=== PATIENT | female | born 1950 | race Hispanic/Latino ===

== ENCOUNTER 2018-12-06 10:08 | Emergency (ER) | payer MEDICARE ==
[2018-12-06] MEDS ORDERED: ONDANSETRON ODT 4 MG TAB ONE (11:00)
[2018-12-06] MEDS ORDERED: MORPHINE SULFATE 4 MG/1ML SYG ONE (11:00)
== END 2018-12-06 11:27 | disposition home or self-care (01) ==
LOC: EDH 10:08
DX: S80.02XA Contusion of left knee, initial encounter (principal); S80.01XA Contusion of right knee, initial encounter; M17.0 Bilateral primary osteoarthritis of knee; W18.39XA Other fall on same level, initial encounter; Y93.01 Activity, walking, marching and hiking; Y92.512 Supermarket, store or market as the place of occurrence of the external cause; Y99.8 Other external cause status
CPT/HCPCS: 73562 ×2; 96372; 99283; J2270

== ENCOUNTER 2022-03-08 14:01 | Inpatient (IN) | payer MEDICARE ==
[~2022-03-08] VITALS: Ht 157.5 cm; Wt 78.1 kg
[2022-03-08] MEDS ORDERED: 0.9%NACL 1000ML 2,000 ML IV ONE (14:23)
[2022-03-08 14:24] LABS: MEAN CORPUSCULAR HEMOGLOBIN 30.4 pg (27.0-33.0); MEAN CORPUSCULAR HGB CONC 34.2 g/dL (32.0-36.0); MEAN CORPUSCULAR VOLUME 88.9 fL (79-99); NUCLEATED RED BLOOD CELLS 0.1 % (0.0-0.19); PLATELET COUNT (AUTO) 283 K/uL (130-400); RED BLOOD CELL COUNT(AUTO) 2.17 MIL/uL (4.00-5.50); RED CELL DISTRIBUTION WIDTH 14.1 % (11.0-15.5); WHITE BLOOD COUNT (AUTO) 16.5 K/uL (4.8-10.8)
[2022-03-08] MEDS ORDERED: 0.9%NACL 1000ML 1,000 ML IV SCH ×2 (14:30→16:30)
[2022-03-08] MEDS ORDERED: 0.9%NACL 1000ML 2,000 ML IV SCH (14:30)
[2022-03-08 14:38] LABS: HEMATOCRIT 19.3 % (36-48)
[2022-03-08 14:39] LABS: ABG OXYGEN SATURATION 15.1 % (95.0-99.0); BASE EXCESS,VENOUS BLOOD GAS 3.2 (-2.0-3.0); HCO3,VENOUS BLOOD GAS 26.6 (21.0-28.0); PCO2,VENOUS BLOOD GAS 35 (32-45); PH,VENOUS BLOOD GAS 7.504 (7.350-7.450)
[2022-03-08 14:50] LABS: ALBUMIN 3.1 g/dL (3.5-5.0); BILIRUBIN,TOTAL 0.4 mg/dL (0.2-1.0); CREATININE 2.1 mg/dL (0.5-1.5); POTASSIUM 3.9 mmol/L (3.5-5.1); TOTAL PROTEIN, SERUM 6.5 g/dL (6.0-8.3)
[2022-03-08 15:00] LABS: BAND NEUTROPHILS % (MANUAL) 1 % (0-2); LYMPHOCYTES % (MANUAL) 21 % (22-44); MONOCYTES % (MANUAL) 2 % (2-9); SEGMENTED NEUTROPHILS % 76 % (40-70)
[2022-03-08 15:01] LABS: MAN.DIFF COMMENT-IMPRESSION MANUAL DIFFERENTIAL
[2022-03-08 15:05] LABS: PLATELET MORPHOLOGY COMMENT LARGE PLTS PRESENT
[2022-03-08 15:14] LABS: MAGNESIUM 1.7 mg/dL (1.80-2.40)
[2022-03-08] MEDS ORDERED: INSULIN HUMULIN R 100 UNIT/ML 3ML SQ ONE (15:30)
[2022-03-08] MEDS ORDERED: INSULIN GLARGINE 100 UNITS/ML 10 ML VIAL SQ STA (16:30)
[2022-03-08] MEDS ORDERED: ONDANSETRON 4MG INJ IVP PRN (16:30)
[2022-03-08] MEDS: INSULIN HUMULIN R 100 UNIT/ML 3ML SQ SCH ×3 (17:00→23:10)
[2022-03-08 17:01] LABS: APPEARANCE,URINE Clear (CLEAR); BILIRUBIN,URINE Negative (NEGATIVE); COLOR,URINE Yellow (YELLOW); GLUCOSE, URINE (UA) >=1000 mg/dL (NEGATIVE); KETONES,URINE Trace mg/dL (NEGATIVE); LEUKOCYTE ESTERASE ,URINE Negative (NEGATIVE); NITRATE,URINE Negative (NEGATIVE); OCCULT BLOOD,URINE Large (NEGATIVE); PH,URINE 7.5 (5.0-8.0); PROTEIN,URINE Negative (NEGATIVE)
[2022-03-08 17:08] LABS: BACTERIA,URINE Few /HPF (None Seen); RBC,URINE 0-1 /HPF (0-1); SQUAMOUS EPITHELIAL CELL,UR Rare /HPF (0-2); WBC,URINE 0-1 /HPF (0-1)
[2022-03-08 17:13] LABS: ALBUMIN 2.5 g/dL (3.5-5.0); BILIRUBIN,TOTAL 0.3 mg/dL (0.2-1.0); CREATININE 1.6 mg/dL (0.5-1.5); POTASSIUM 3.6 mmol/L (3.5-5.1); TOTAL PROTEIN, SERUM 5.4 g/dL (6.0-8.3)
[2022-03-08 17:14] LABS: % IRON SATURATION 13.8 % (22-44)
[2022-03-08] MEDS ORDERED: PEG 3350/NA SULF,BICARB,CL/KCL 4000 ML SOLN PO ONE (18:00)
[2022-03-08] MEDS: PANTOPRAZOLE 40 MG/VIAL IVP SCH (21:25)
[2022-03-08] MEDS ORDERED: GLUCAGON 1MG KIT 1 MG ML IM PRN (23:30)
[2022-03-08] MEDS ORDERED: DEXTROSE 50%-WATER 50 ML DISP.SYRIN IV PRN (23:30)
[2022-03-09] VITALS (15 sets, daily range): BP systolic 96–144; BP diastolic 39–80
[2022-03-09 02:02] LABS: HEMATOCRIT 25.1 % (36-48)
[2022-03-09] MEDS: INSULIN HUMULIN R 100 UNIT/ML 3ML SQ SCH ×3 (06:00→17:39)
[2022-03-09 06:35] LABS: BASOPHILS % (AUTO) 0.3 % (0.0-5.0); EOSINOPHILS % (AUTO) 0.5 % (0.0-8.0); LYMPHOCYTES % (AUTO) 36.4 % (21.0-51.0); MEAN CORPUSCULAR HEMOGLOBIN 30.4 pg (27.0-33.0); MEAN CORPUSCULAR HGB CONC 34.6 g/dL (32.0-36.0); MEAN CORPUSCULAR VOLUME 87.8 fL (79-99); MONOCYTES % (AUTO) 6.1 % (3.0-13.0); NEUTROPHILS % (AUTO) 55.3 % (40.0-77.0); NUCLEATED RED BLOOD CELLS 0.2 % (0.0-0.19); PLATELET COUNT (AUTO) 206 K/uL (130-400); RED BLOOD CELL COUNT(AUTO) 2.96 MIL/uL (4.00-5.50); WHITE BLOOD COUNT (AUTO) 13.8 K/uL (4.8-10.8)
[2022-03-09 07:08] LABS: HEMOGLOBIN A1C 9.3 % (4.0-6.0)
[2022-03-09] MEDS ORDERED: MAGNESIUM 2GM PREMIX 50ML 50 ML IV PRN (08:00)
[2022-03-09] MEDS ORDERED: MAGNESIUM 2GM PREMIX 50ML 50 ML IV ONE (08:12)
[2022-03-09] MEDS: PANTOPRAZOLE 40 MG/VIAL IVP SCH ×2 (08:23→20:53)
[2022-03-09 10:27] LABS: ALBUMIN 2.8 g/dL (3.5-5.0); BILIRUBIN,TOTAL 0.5 mg/dL (0.2-1.0); CREATININE 1.4 mg/dL (0.5-1.5); POTASSIUM 3.1 mmol/L (3.5-5.1)
[2022-03-09] MEDS ORDERED: LIDOCAINE HCL-MPF 1% 2ML VIAL IV PRN ×2 (11:00→14:30)
[2022-03-09] MEDS ORDERED: POTASSIUM CHLORIDE 20MEQ/100ML 100 ML IV PRN ×2 (11:00→14:30)
[2022-03-09] MEDS ORDERED: PROPOFOL 10 MG/ML 20ML VIAL IV ONE (12:11)
[2022-03-09] MEDS ORDERED: LIDOCAINE PF 100MG/5ML (2%) SYRINGE 5ML ONE (12:11)
[2022-03-09] MEDS ORDERED: FENTANYL CITRATE PF 50 MCG/1 ML 2ML VIAL ONE (12:11)
[2022-03-09] MEDS ORDERED: 0.9%NACL 1000ML 1,000 ML IV ONE (12:38)
[2022-03-09] MEDS: POTASSIUM CHLORIDE 10% ELIXIR 20 MEQ/15 ML UDCUP PO PRN ×2 (14:28→16:53)
[2022-03-09 18:03] LABS: MAGNESIUM 2.1 mg/dL (1.80-2.40); POTASSIUM 3.7 mmol/L (3.5-5.1)
[2022-03-10] MEDS: INSULIN HUMULIN R 100 UNIT/ML 3ML SQ SCH ×4 (01:02→16:19)
[2022-03-10 03:36] VITALS: BP 95/48
[2022-03-10 04:26] LABS: BASOPHILS % (AUTO) 0.2 % (0.0-5.0); EOSINOPHILS % (AUTO) 1.7 % (0.0-8.0); HEMATOCRIT 22.8 % (36-48); LYMPHOCYTES % (AUTO) 43.1 % (21.0-51.0); MEAN CORPUSCULAR HEMOGLOBIN 29.1 pg (27.0-33.0); MEAN CORPUSCULAR HGB CONC 32.5 g/dL (32.0-36.0); MEAN CORPUSCULAR VOLUME 89.8 fL (79-99); MONOCYTES % (AUTO) 7.3 % (3.0-13.0); NEUTROPHILS % (AUTO) 46.8 % (40.0-77.0); NUCLEATED RED BLOOD CELLS 0.2 % (0.0-0.19); PLATELET COUNT (AUTO) 177 K/uL (130-400); RED BLOOD CELL COUNT(AUTO) 2.54 MIL/uL (4.00-5.50); RED CELL DISTRIBUTION WIDTH 15.1 % (11.0-15.5); WHITE BLOOD COUNT (AUTO) 9.7 K/uL (4.8-10.8)
[2022-03-10 04:52] LABS: ALBUMIN 2.3 g/dL (3.5-5.0); BILIRUBIN,TOTAL 0.2 mg/dL (0.2-1.0); CREATININE 1.4 mg/dL (0.5-1.5); MAGNESIUM 1.9 mg/dL (1.80-2.40); PHOSPHORUS 2.8 mg/dL (2.5-4.9)
[2022-03-10 08:00] VITALS: BP 130/58
[2022-03-10] MEDS ORDERED: IRON SUCROSE COMPLEX 100 MG in 0.9%NACL 50ML 50 ML IV SCH (09:00)
[2022-03-10] MEDS: PANTOPRAZOLE 40 MG/VIAL IVP SCH ×2 (09:03→20:22)
[2022-03-10] MEDS: IRON SUCROSE COMPLEX 100 MG/5 ML VIAL IVP SCH (09:03)
[2022-03-10] MEDS: KCL 20 MEQ ERTAB PO PRN ×4 (09:06→19:03)
[2022-03-10] MEDS ORDERED: ACETAMINOPHEN 325 MG TAB PO PRN (10:00)
[2022-03-10 12:00] VITALS: BP 127/58
[2022-03-10 16:00] VITALS: BP 109/51
[2022-03-10 19:13] VITALS: BP 123/53
[2022-03-10 23:53] VITALS: BP 136/62
[2022-03-11] MEDS: INSULIN HUMULIN R 100 UNIT/ML 3ML SQ SCH ×5 (01:35→17:27)
[2022-03-11 04:01] VITALS: BP 121/65
[2022-03-11 04:21] LABS: BASOPHILS % (AUTO) 0.2 % (0.0-5.0); EOSINOPHILS % (AUTO) 2.4 % (0.0-8.0); HEMATOCRIT 24.7 % (36-48); LYMPHOCYTES % (AUTO) 40.3 % (21.0-51.0); MEAN CORPUSCULAR HEMOGLOBIN 30.8 pg (27.0-33.0); MEAN CORPUSCULAR VOLUME 90.5 fL (79-99); MONOCYTES % (AUTO) 7.6 % (3.0-13.0); NEUTROPHILS % (AUTO) 48.4 % (40.0-77.0); NUCLEATED RED BLOOD CELLS 0.4 % (0.0-0.19); PLATELET COUNT (AUTO) 198 K/uL (130-400); RED BLOOD CELL COUNT(AUTO) 2.73 MIL/uL (4.00-5.50); RED CELL DISTRIBUTION WIDTH 15.2 % (11.0-15.5); WHITE BLOOD COUNT (AUTO) 8.4 K/uL (4.8-10.8)
[2022-03-11 05:12] LABS: ALBUMIN 2.6 g/dL (3.5-5.0); BILIRUBIN,TOTAL 0.3 mg/dL (0.2-1.0); CREATININE 1.3 mg/dL (0.5-1.5); POTASSIUM 4.2 mmol/L (3.5-5.1)
[2022-03-11 05:32] LABS: HEMOGLOBIN A1C 9.2 % (4.0-6.0)
[2022-03-11 07:52] VITALS: BP 127/69
[2022-03-11] MEDS: PANTOPRAZOLE 40 MG/VIAL IVP SCH (10:09)
[2022-03-11] MEDS: IRON SUCROSE COMPLEX 100 MG/5 ML VIAL IVP SCH (10:09)
[2022-03-11 12:00] VITALS: BP 122/53
[2022-03-11 16:00] VITALS: BP 128/45
[2022-03-11] MEDS ORDERED: METF-444 PO (17:28)
== END 2022-03-11 19:40 | disposition home or self-care (01) | DRG 377 ==
LOC: EDH 14:01 → INTOOBSV 15:36 → EDHIP 15:36 → OBSVTOIN 15:36 → 2AH 23:43 → 2DH 03-10 04:37
PROVIDERS: ADMIT Internal Medicine Critical Care Medicine; ATTEND Internal Medicine Critical Care Medicine
PROC: 30233N1 Transfusion of Nonautologous Red Blood Cells into Peripheral Vein, Percutaneous Approach (ICD-10-PCS; 2022-03-08)
PROC: 0DB68ZX Excision of Stomach, Via Natural or Artificial Opening Endoscopic, Diagnostic (ICD-10-PCS; principal; 2022-03-09)
PROC: 0DJD8ZZ Inspection of Lower Intestinal Tract, Via Natural or Artificial Opening Endoscopic (ICD-10-PCS; 2022-03-09)
DX: K25.4 Chronic or unspecified gastric ulcer with hemorrhage (principal); E11.00 Type 2 diabetes mellitus with hyperosmolarity without nonketotic hyperglycemic-hyperosmolar coma (NKHHC); N17.9 Acute kidney failure, unspecified; E87.1 Hypo-osmolality and hyponatremia; E11.65 Type 2 diabetes mellitus with hyperglycemia; N18.9 Chronic kidney disease, unspecified; E86.9 Volume depletion, unspecified; E83.51 Hypocalcemia; K57.30 Diverticulosis of large intestine without perforation or abscess without bleeding; K25.9 Gastric ulcer, unspecified as acute or chronic, without hemorrhage or perforation; K29.70 Gastritis, unspecified, without bleeding; D50.9 Iron deficiency anemia, unspecified
CPT/HCPCS: 36415; 43239; 45378; 71045; 80053; 81001; 82270; 82435; 82607; 82746; 82803; 82947; 82948; 83036; 83540; 83550; 83605; 83735; 83930; 83935; 84100; 84132; 84145; 84295; 84484; 85014; 85018; 85025; 86850; 86900; 86901; 86923; 87635; 93005; 99291; C9113; G0378; J1756; J1815; J2001; J2405; J2704; J3010; J3475; J3480; J3490; J7030; P9016

== ENCOUNTER 2022-08-01 10:55 | Emergency (ER) | payer MEDICARE ==
[~2022-08-01] VITALS: Ht 160 cm; Wt 77.1 kg
[~2022-08-01 10:55] MED LIST: ACYC-138 PO; DOCU-116 PO; METF-444 PO
[2022-08-01 11:22] LABS: BASOPHILS % (AUTO) 0.6 % (0.0-5.0); EOSINOPHILS % (AUTO) 2.2 % (0.0-8.0); HEMATOCRIT 37.2 % (36-48); LYMPHOCYTES % (AUTO) 39.7 % (21.0-51.0); MEAN CORPUSCULAR VOLUME 86.1 fL (79-99); MONOCYTES % (AUTO) 5.9 % (3.0-13.0); PLATELET COUNT (AUTO) 241 K/uL (130-400); RED BLOOD CELL COUNT(AUTO) 4.32 MIL/uL (4.00-5.50); RED CELL DISTRIBUTION WIDTH 13.5 % (11.0-15.5); WHITE BLOOD COUNT (AUTO) 8.2 K/uL (4.8-10.8)
[2022-08-01 11:24] LABS: CREATININE 1.3 mg/dL (0.5-1.5); POTASSIUM 3.5 mmol/L (3.5-5.1)
[2022-08-01 11:28] LABS: ALBUMIN 4.1 g/dL (3.5-5.0); TOTAL PROTEIN, SERUM 8.2 g/dL (6.0-8.3)
[2022-08-01] MEDS ORDERED: KETOROLAC 15MG/ML VIAL (15MG/ML) IV ONE (12:30)
[2022-08-01] MEDS ORDERED: ONDANSETRON 4MG INJ IVP ONE (12:30)
[2022-08-01] MEDS ORDERED: MORPHINE 4 MG SYG IVP ONE (12:30)
[2022-08-01] MEDS ORDERED: TRAM1TAB2 PO (12:31)
[2022-08-01 13:24] VITALS: BP 122/68
== END 2022-08-01 13:25 | disposition home or self-care (01) ==
LOC: EDH 10:55
DX: B02.23 Postherpetic polyneuropathy (principal); E11.9 Type 2 diabetes mellitus without complications; I10 Essential (primary) hypertension; Z79.84 Long term (current) use of oral hypoglycemic drugs; Z98.890 Other specified postprocedural states; Z79.899 Other long term (current) drug therapy
CPT/HCPCS: 99284; 96374; 96375; 80053; 83690; 85025; 36415; J2405; J2270; J1885

== ENCOUNTER → 2023-03-09 | Outpatient (CLI) | payer MEDICARE ==
[~2023-03-09] MED LIST changes: +TRAM1TAB2 PO
== END | disposition home or self-care (01) ==
LOC: RAH 12:40
PROVIDERS: ATTEND Family Medicine
DX: Z12.31 Encounter for screening mammogram for malignant neoplasm of breast (principal); R92.1 Mammographic calcification found on diagnostic imaging of breast
CPT/HCPCS: 77067